=== PATIENT | male | born 1950 | race Caucasian/White ===

== ENCOUNTER 2016-05-10 10:28 | Observation (INO) | payer BC ==
[~2016-05-10] VITALS: Ht 185.4 cm; Wt 119.1 kg
[2016-05-10] MEDS ORDERED: CEFUROXIME250 MG (10:44)
[2016-05-10] MEDS ORDERED: MEDROL DOSE PACK4 MG (10:44)
[2016-05-10] MEDS ORDERED: TAMIFLU75 MG (10:44)
--- NOTE | 2016-05-10 11:01 | NUR ---
RECEIVED PT TO ROOM 2117 AMBULATORY AAOX4 DENIES CHEST PAIN DOES STATE SOME DIZZINESS AND WEAKNESS MILD HEAD ACHE
[2016-05-10 11:43] LABS: BASOPHILS 0.4 % (0.0-2.0); EOSINOPHILS 2.1 % (0-7); HEMATOCRIT 45.9 % (42.0-54.0); HEMOGLOBIN 15.5 g/dL (13.5-17.5); IMMATURE GRANULOCYTES 0.1 % (0-5); LYMPHOCYTES 29.6 % (15-50); MCHC 33.8 g/dL (31.0-37.0); MCV 91.8 fL (80.0-100.0); MEAN PLATELET VOLUME 10.8 fL (7.4-10.4); MONOCYTES 6.6 % (2-11); NEUTROPHILS 61.2 % (40-80); PLATELET COUNT 159 10x3/uL (130-400); RDW 13.9 % (11.5-14.5); WBC 7.1 10x3/uL (4.8-10.8)
[2016-05-10 12:00] LABS: ALBUMIN 3.5 g/dL (3.4-5.0); ALKALINE PHOSPHATASE 76 U/L (46-116); ALT (SGPT) 26 U/L (10-68); BILIRUBIN - TOTAL 0.33 mg/dL (0.2-1.3); CALC OSMOLALITY 288 mosm/kg (275-300); CALCIUM 8.7 mg/dL (8.5-10.1); CARBON DIOXIDE 27.8 mmol/L (21.0-32.0); CHLORIDE - SERUM 109 mmol/L (98-107); CREATININE - SERUM 0.9 mg/dL (0.6-1.3); GLUCOSE 91 mg/dL (74-106); PROTEIN - SERUM 6.4 g/dL (6.4-8.2); SODIUM 143 mmol/L (136-145); UREA NITROGEN 24 mg/dL (7-18); eGFR NON AFRICAN AMERICAN > 90 mL/min (90-120)
[2016-05-10 12:08] LABS: CREATINE KINASE 111 UL (21-232)
[2016-05-10 12:09] LABS: TROPONIN-I < 0.017 ng/mL (0.000-0.060)
[2016-05-10 12:43] VITALS: BP 206/108
[2016-05-10 13:41] VITALS: BP 106/108; Ht 185.4 cm; Wt 119.1 kg
[2016-05-10 16:18] VITALS: BP 187/96
[2016-05-10 19:06] LABS: CREATINE KINASE 99 UL (21-232); TROPONIN-I < 0.017 ng/mL (0.000-0.060)
--- NOTE | 2016-05-10 19:15 | NUR ---
INITIAL ROUNDS MADE. PT SITTING UP IN BED WITH FAMILY IN ROOM, WATCHING TV. DENIES NEEDS OR C/O AT THIS TIME. CALL LIGHT IN REACH. SLEEPER CHAIR BROUGHT FOR . CONT TO MONITOR.
[2016-05-10 20:15] VITALS: BP 137/71
[2016-05-10 22:07] LABS: CKMB 0.8 U/L (0.0-3.6); CREATINE KINASE 91 UL (21-232); TROPONIN-I < 0.017 ng/mL (0.000-0.060)
[2016-05-11 00:34] VITALS: BP 143/80
--- NOTE | 2016-05-11 00:55 | NUR ---
STRINGER MACHINE TENDER AT BEDSIDE FOR VS, NEEDS ADDRESSED. CALL LIGHT IN REACH. WILL CONT TO MONITOR.
[2016-05-11 04:26] VITALS: BP 144/90
[2016-05-11 05:15] LABS: BASOPHILS 0.2 % (0.0-2.0); EOSINOPHILS 2.7 % (0-7); HEMATOCRIT 45.4 % (42.0-54.0); HEMOGLOBIN 15.4 g/dL (13.5-17.5); IMMATURE GRANULOCYTES 0.2 % (0-5); LYMPHOCYTES 30.2 % (15-50); MCH 30.9 pg (26.0-34.0); MCHC 33.9 g/dL (31.0-37.0); MCV 91.2 fL (80.0-100.0); MEAN PLATELET VOLUME 11.2 fL (7.4-10.4); MONOCYTES 7.7 % (2-11); PLATELET COUNT 156 10x3/uL (130-400); RBC 4.98 10x6/uL (4.20-6.10); RDW 13.7 % (11.5-14.5); WBC 6.7 10x3/uL (4.8-10.8)
[2016-05-11 05:29] LABS: CALC OSMOLALITY 280 mosm/kg (275-300); CALCIUM 8.2 mg/dL (8.5-10.1); CARBON DIOXIDE 25.9 mmol/L (21.0-32.0); CHLORIDE - SERUM 107 mmol/L (98-107); CREATININE - SERUM 0.9 mg/dL (0.6-1.3); GLUCOSE 97 mg/dL (74-106); POTASSIUM - SERUM 3.9 mmol/L (3.5-5.1); SODIUM 140 mmol/L (136-145); UREA NITROGEN 19 mg/dL (7-18); eGFR NON AFRICAN AMERICAN > 90 mL/min (90-120)
--- NOTE | 2016-05-11 06:43 | NUR ---
RESTING WELL WITH EYES CLOSED, CONT TO MONITOR.
--- NOTE | 2016-05-11 07:30 | NUR ---
RECEIVED PT IN BED AAOX4 RESP UNLABORED DENIES ANY NEEDS OR DISCOMFORT AT THIS TIME NAD
[2016-05-11 08:33] VITALS: BP 176/97
[2016-05-11] MEDS ORDERED: ZESTORETIC 20/21 TAB PO (12:13)
[2016-05-11 12:26] VITALS: BP 166/88
--- NOTE | 2016-05-11 13:10 | NUR ---
REVIEWED DISCHARGE INSTRUCTIONS PT STATES UNDERSTANDING COPY GIVEN PT DISCHARGED HOME LEFT UNIT AMBULATORY WITH AND STAFF REFUSSED W/C STABLE CONDITION WITH ALL PERSONAL BELONGINGS
--- NOTE | 2016-05-12 10:09 | EC ---
PATIENT:BANDAR MORAN DATE OF SERVICE: 05/10/16 SEX: M MEDICAL RECORD: [id number] DATE OF : 54 LOCATION:D. D.211 AGE OF PATIENT: 65 ADMISSION DATE: 05/10/16 REFERRING PHYSICIAN: INTERPRETING PHYSICIAN: PAO ROTH MD ECHOCARDIOGRAM REPORT ECHO CHARGES 4 ECHO COMPLETE CLINICAL DIAGNOSIS: HTN ECHOCARDIOGRAPHIC MEASUREMENTS (adult normal given) AC root (d.<3.7cm) 3.5 LV Septum d (<1.2 cm> 1.4 Valve Excursion 1.6 LV Septum (systole) 2.2 Left Atria (s.<4.0cm> 5.0 LVPW d(<1.2cm) 1.4 RV (d.<2.3cm) 3.4 LVPW (sytole) 2.3 LV diastole(<5.6CM) 6.4 MV E-F(>70mm/sec) LV systole 3.9 LVOT Diameter 2.2 MV exc.(>10mm) Est.ejection fraction (50-75%) Pericardial Effusion N DOPPLER: LVIT A 44.0 E 59.0 LA RVSP 43.2 LVOT 113 AOP1/2T Asc. Ao 194 RVOT 52.0 RA PA 107 AV Gradient Peak 15.1 AV Mean 6.8 AV Area 2.1 MV Gradient Peak 3.1 MV Mean 0.73 MV Area COMMENTS: Erp Analyst: Stephen RIDEROE Stockfeed Miller:1 Dr. Roth TAPE# PACS DATE OF SERVICE: 05/10/2016 Echocardiogram FINDINGS: 1. Left ventricular chamber size is within normal limits. Left ventricular systolic function is normal. Overall ejection fraction estimated at 55%. 2. Left atrium is enlarged at 5.0 cm. Right atrium and right ventricular chamber sizes are as well mildly dilated. 3. Valvular structures have normal structure and motion. ECHOCARDIOGRAM REPORT [id number] BANDAR MORAN 4. Doppler interrogation reveals [id number] mitral regurgitation, mild tricuspid regurgitation. No other valvular insufficiency or stenosis. Pulmonary systolic pressure is mildly elevated estimated 43 mmHg. 5. No evidence of pericardial effusion or left ventricular thrombus. TRANSINT:[id number] Voice Confirmation ID: [id number] DOCUMENT ID: [id number] PAO ROTH MD at 1009 CC: [id number] DICTATION DATE: 05/11/16 1153 SUSTAINABILITY OFFICER: 05/11/16 2321 DIS IN 05/11/16 [facility] [address] [id number]
--- NOTE | 2016-05-12 10:09 | CN ---
PATIENT NAME:BANDAR MORAN MEDICAL RECORD: [id number] : 54 LOCATION:D. D.2118 ADMIT DATE: 05/10/16 ACCOUNT: [id number] CONSULTING PHYSICIAN: PAO CURRIE MD REFERRING PHYSICIAN: GISELLE HILLS MD DATE OF CONSULTATION: 05/10/2016 Cardiology Consultation ADMITTING DIAGNOSES: 1. Near syncope. 2. Hypertension. 3. Bradycardia. HISTORY OF PRESENT ILLNESS: Mr. Moran has had no chest pain, no chest discomfort. He had an episode of near syncope on . His blood pressure has been running in the 170-200 range since. He had no shortness of breath, minor headache with this. He has been told in the past that he is hypertensive, but has not been placed on any medications. His EKG does show sinus bradycardia in the mid 50s. No ST-T abnormalities. PHYSICAL EXAMINATION: GENERAL APPEARANCE: Well-nourished, well-developed, appears stated age. Level of distress, comfortable. PSYCHIATRIC: Mental status, alert, normal affect. Orientation, oriented to time, place and person. EYES: Lids and conjunctiva, noninjected. No discharge, no pallor. ENT: Lips, teeth, gums, normal dentition. Oropharynx, no cyanosis, no pallor. NECK: Carotid arteries, bilateral normal upstroke, no bruits, no thrills. JUGULAR VEINS: No jugular venous pressure or distention. CERVICAL LYMPH NODES: Nontender, nonenlarged. THYROID: Not enlarged. Nontender. No nodules. LUNGS: Respiratory effort, unlabored. CHEST: Normal curvature. No thoracic deformity. No chest wall tenderness. Percussion, resonant. Auscultation, clear. No wheezes, no rales, no rhonchi. CARDIOVASCULAR: Precordial exam, nondisplaced. No heaves or pericardial thrills. Rate and rhythm, regular. Heart sounds, normal S1, normal S2. No S3, no gallop, no rub. Systolic murmur, not heard. Diastolic murmur, not heard. EXTREMITIES: No cyanosis, no edema. Peripheral pulses, full and equal in all extremities, except as noted. No bruits appreciated. ABDOMEN: Soft, nondistended. Normal aorta. No bruit. Nontender. No masses. Liver, nontender, no hepatomegaly. Spleen, nontender, no splenomegaly. MUSCULOSKELETAL: No joint tenderness. No joint swelling. No erythema. NEUROLOGICAL: Normal gait, normal strength, normal tone. SKIN: Warm and dry. REVIEW OF SYSTEMS: The patient reports easy bruising but reports no swollen glands. The patient reports no fever, no night sweats, no significant weight gain, no significant weight loss. No significant exercise tolerance. The patient reports no dry eyes, no irritation, no vision change. Patient reports no difficulty hearing and no ear pain. Patient reports no frequent nose bleeds or nose and sinus problems. Patient reports on arm pain on exertion. No shortness of breath while lying down. No history of heart murmur. Patient reports no cough, no wheezing or coughing up blood. Patient reports no abdominal pain, no vomiting. Normal appetite. No diarrhea and not vomiting CONSULT REPORT [id number] BANDAR MORAN. No nausea and no constipation. Patient reports no incontinence. No difficulty urinating. No hematuria. No increased frequency. Patient reports no muscle aches. No weakness, no arthralgias, no back pain. No swelling of the extremities. Patient reports no abnormal mole, no jaundice, no rashes. Reports no loss of consciousness. No weakness and no numbness. No seizures, dizziness, or headaches. The patient reports no depression, no sleep disturbance, feeling safe in a relationship and no alcohol abuse. Patient reports on fatigue. Reports no runny nose or sinus pressure. No itching, no hives, and no frequent sneezing. OVERALL IMPRESSION: Hypertension, sinus bradycardia. It does not have anything to do with hypertension, most likely, he does have essential hypertension. It is difficult to say what the episode of near syncope was. It only lasted seconds. We will treat his blood pressure with lisinopril 40 mg every day. Get an echocardiogram today. Further care depends upon the results with the lisinopril and the echocardiogram results. TRANSINT:[id number] Voice Confirmation ID: [id number] DOCUMENT ID: [id number] PAO CURRIE MD at 1009 CC: [id number] DICTATION DATE: 05/10/16 1132 CRM MARKETING ANALYST: 05/10/16 1214 DIS IN 05/11/16 [id number] [place] [address]
== END 2016-05-11 13:10 | disposition home or self-care (01) ==
LOC: D.M2 10:28 → OBSVTIME 10:29 → D.M2 05-11 13:10
PROVIDERS: ADMIT Family Medicine Adult Medicine
DX: R07.9 Chest pain, unspecified (principal); R55 Syncope and collapse; I10 Essential (primary) hypertension; R00.1 Bradycardia, unspecified

== ENCOUNTER 2016-05-30 07:07 | Outpatient (CLI) | payer BC ==
[~2016-05-30] VITALS: Ht 185.4 cm; Wt 111.4 kg
--- NOTE | ~2016-05-30 | HEMODYNAMI ---
PATIENT:BANDAR MORAN MEDICAL RECORD: [id number] : 54 LOCATION:DVIMAL ADMISSION DATE: 05/30/16 Generatedon:05/30/20168:49 Patient name: BANDAR MORAN Patient #: [id number] SSN: DO B: 1950 Date of study: 05/30/2016 Page: Of Hemodynamic Procedure Report Patient Data Patient Demographics Procedure consent was obtained First Name: BANDAR Gender: Male Last Name: LUISA : 1950 Patient #: [id number] Age: 65 year(s) Race: Unknown Additional ID: [id number] Contact details [address]: [address] [place] [address] State: [place] City: [place] Zip code: [address] Past Medical History Allergies: No known allergies Admission Admission Data Admission Date: 05/30/2016 Admission Time: 7:07 Lab Results Lab Result Date: 05/30/2016 Lab Result Time: 0:00 Biochemistry Name Units Result Min Max Creatinine mg/dl 0.9 --(-*--)-- 0.6 1.3 CBC Name Units Result Min Max Hemoglobin g/dl 16.2 --(--*-)-- 13.5 17.5 Procedure Procedure Types Cath Procedure Diagnostic Procedure [facility] w/Coronaries Miscellaneous Procedures Moderate Sedation up to 15 minutes Procedure Description Procedure Date Procedure Date: 05/30/2016 Procedure Start Time: 8:39 Procedure End Time: 8:49 Procedure Staff Name Function Arthur Roth MD Performing Physician Luanne Thomson RT Scrub Refugio Aguayo RN Nurse Lars Burgos RT Monitor Procedure Data Cath Procedure Fluoroscopy Diagnostic fluoroscopy Total fluoroscopy Time: 1.1 time: 1.1 min min Diagnostic fluoroscopy Total fluoroscopy dose: 664 dose: 664 mGy mGy Contrast Material Contrast Material Type Amount (ml) Isovue 300 67 Entry Location Entry Primary Successful Side Size Upsize Upsize Entry Closure Succes sful Closure Location (Fr) 1 (Fr) 2 (Fr) Remarks Device Remarks Femoral Right 5 Fr Exoseal artery Estimated blood loss: 5 ml Diagnostic catheters Device Type Used For End Catheter Placement Cordis 5Fr Pigtail LV Angiography Catheter (MP) Cordis 5Fr JL 4.0 Left Coronary Catheter (MP) Angiography Cordis 5Fr 3DRC Catheter Right Coronary (MP) Angiography Procedure Complications No complications Procedure Medications Medication Administration Route Dosage Oxygen NC 2 l/min Lidocaine 2% added to field 20 Heparin Flush Bag added to field 2 bags (1000units/500ml NS) 0.9% NaCl I.V. 100 ml/hr Versed I.V. 1 mg Fentanyl I.V. 50 mcg Versed I.V. 1 mg Fentanyl I.V. 50 mcg Versed I.V. 1 mg Fentanyl I.V. 50 mcg Versed I.V. 1 mg Fentanyl I.V. 50 mcg Hemodynamics Rest HGB: 16.2 (g/dl) Heart Rate: 52 (bpm) Snapshots Pre Cath Intra NCS Post Cath Vital Signs Time Heart Resp SPO2 etCO2 [id number] NIBP (mmHg) Rhythm Pain Sedation Rate (ipm) (%) (mmHg) (mmHg) Status Level (bpm) 8:17:09 56 17 100 0 0 139/111(117) NSR 0 (11) 10(A) , No pain 8:21:24 57 18 100 0 0 156/92(135) NSR 0 (11) 10(A) , No pain 8:25:46 57 15 100 0 0 149/89(120) NSR 0 (11) 10(A) , No pain 8:30:48 59 16 97 0 0 131/77(91) NSR 0 (11) 10(A) , No pain 8:35:02 54 16 95 0 0 121/82(95) NSR 0 (11) 10(A) , No pain 8:39:12 50 17 96 0 0 122/86(99) NSR 0 (11) 9(A) , No pain 8:43:27 51 17 95 0 0 132/67(104) NSR 0 (11) 9(A) , No pain 8:47:45 54 17 95 0 0 123/69(101) NSR 0 (11) 10(A) , No pain Medications Time Medication Route Dose Verified Delivered Reason Notes Effec tiveness by by 8:24:49 Oxygen NC 2 Arthur Huff used for l/min Gonzalez Aguayo RN procedure 8:24:56 Lidocaine 2% added 20ml Arthur Arthur for local to vial Gonzalez Roth MD anesthetic field 8:25:02 Heparin Flush added 2 Arthur Arthur used for Bag to bags Gonzalez Roth MD procedure (1000units/500ml field NS) 8:25:12 0.9% NaCl I.V. 100 Arthur Buffie Per ml/hr Gonzalez Aguayo RN physician 8:37:56 Versed I.V. 1 mg Arthur Buffie for Gonzalez Aguayo RN sedation 8:38:02 Fentanyl I.V. 50 Arthur Buffie for mcg Gonzalez Aguayo RN sedation 8:40:19 Versed I.V. 1 mg Arthur Buffie for Gonzalez Aguayo RN sedation 8:40:22 Fentanyl I.V. 50 Arthur Buffie for mcg Gonzalez Aguayo RN sedation 8:42:35 Versed I.V. 1 mg Arthur Buffie for Gonzalez Aguayo RN sedation 8:42:39 Fentanyl I.V. 50 Arthur Buffie for mcg Gonzalez Aguayo RN sedation 8:45:45 Versed I.V. 1 mg Arthur Buffie for Gonzalez Aguayo RN sedation 8:46:11 Fentanyl I.V. 50 Arthur Buffie for mcg Gonzalez Aguayo RN sedation Procedure Log Time Note 8:08:29 Diagnostic Cath Status : Elective 8:09:10 Luanne Counts RT(R) sent for patient. Start room use. 8:09:11 Time tracking: Regular hours 8:09:15 Plan of Care:Hemodynamics will remain stable., Cardiac rhythm will remain stable., Comfort level will be maintained., Respiratory function will remain adequate., Patient/ family verbilizes understanding of procedure., Procedure tolerated without complication., Recovers from procedure without complications.. 8:15:43 Patient received from Pre/Post Procedure Room to CCL 1 Alert and oriented. Tansferred to table in Supine position. 8:15:45 Correct patient and procedure confirmed by team. 8:15:46 Warm blankets applied, and angelica hugger turned on for patient comfort. 8:15:47 ECG and BP/O2 sat monitors applied to patient. 8:15:49 Signed procedure consent form obtained from patient. 8:15:50 Full Disclosure recording started 8:15:51 Vital chart was started 8:20:25 Baseline sample Acquired. 8:20:31 Rhythm: sinus bradycardia 8:20:44 H&P Date Dictated: 05/10/2016 Within 30 days and on chart., H&P Addendum completed by physician on day of procedure. (MUST COMPLETE FOR ALL OUTPATIENTS). 8:20:45 Pre-procedure instructions explained to patient. 8:20:45 Pre-op teaching completed and patient verbalized understanding. 8:20:47 Family in waiting room. 8:20:48 Patient NPO since Midnight. 8:20:55 Patient allergic to No known allergies 8:20:59 Is the patient allergic to Iodine/contrast media? No. 8:21:04 Is patient on blood thinner?Yes 8:21:06 ACC The patient was administered the following blood thiners within the last 24 hours: ACCPlavix 8:21:08 Patient diabetic? No. 8:23:26 Previous problem with sedation/anesthesia? No ? 8:23:27 Snore? Yes 8:23:28 Sleep apnea? Yes 8:23:29 Deviated septum? No 8:23:30 Opens mouth fully? Yes 8:23:31 Sticks out tongue? Yes 8:23:32 Airway obstruction? No ? 8:23:34 Dentures? No ? 8:23:37 Pre procedure: right dorsailis pedis pulse 2+ Normal; easily identifiable; not easily obliterated 8:23:44 Modified Robert's test Ulnar > 7 seconds. 8:23:47 Patient pain scale 0/10 ?. 8:23:51 IV patent on arrival in left hand with 0.9% NaCl at KVO. 8:24:43 Lab Result : Creatinine 0.9 mg/dl 8:24:44 Lab Result : Hemoglobin 16.2 g/dl 8:24:49 Oxygen 2 l/min NC was administered by Refugio Aguayo RN; used for procedure; 8:24:49 Lab results completed and on chart. 8:24:55 Right groin area was prepped with chlora-prep and draped in sterile fashion 8:24:56 Lidocaine 2% 20ml vial added to field was administered by Arthur Roth MD; for local anesthetic; 8:24:56 Alarms reviewed by R. N. 8:24:56 Sharps counted by scrub and verified by R.N. 8:25:01 Use device set Femoral Dx 8:25:02 Heparin Flush Bag (1000units/500ml NS) 2 bags added to field was administered by Arthur Roth MD; used for procedure; 8:25:02 Acist Syringe opened to sterile field. 8:25:02 Bag Decanter opened to sterile field. 8:25:03 Medline Cath Pack opened to sterile field. 8:25:03 Terumo 5Fr Tolstoy Sheath opened to sterile field. 8:25:04 St Devon 260cm J .035 wire opened to sterile field. 8:25:05 Acist Hand Control opened to sterile field. 8:25:06 Acist Manifold opened to sterile field. 8:25:07 Diagnostic Infinity 5Fr Multipack catheter opened to sterile field. 8:25:07 Tegaderm 4 x 4 opened to sterile field. 8:25:12 0.9% NaCl 100 ml/hr I.V. was administered by Refugio Aguayo RN; Per physician; 8:27:20 Physician paged 8:31:56 Zero performed for pressure channel P1 8:37:24 Final Timeout: patient, procedure, and site verified with staff and physician. All members of the team are in agreement. 8:37:26 Right groin site verified by team. 8:37:29 Physical assessment completed. ASA score P 2 - A patient with mild systemic disease as per Arthur Roth MD. 8:37:33 Sedation plan: IV Moderate Sedation Versed, Fentanyl 8:37:56 Versed 1 mg I.V. was administered by Refugio Aguayo RN; for sedation; 8:38:02 Fentanyl 50 mcg I.V. was administered by Refugio Aguayo RN; for sedation; 8:39:46 Procedure started. 8:39:52 Local anesthetic to right femoral artery with Lidocaine 2% by Arthur Roth MD.INITIAL ACCESS ONLY 8:40:17 A 5 Fr sheath was inserted into the Right Femoral artery 8:40:19 Versed 1 mg I.V. was administered by Refugio Aguayo RN; for sedation; 8:40:22 Fentanyl 50 mcg I.V. was administered by Refugio Aguayo RN; for sedation; 8:40:47 A Cordis 5Fr Pigtail Catheter (MP) was advanced over the wire and used for LV Angiography. 8:40:51 LV gram done using STEWART 8:41:03 Injector settings: Ml/sec: 10, Volume: 20, 8:41:59 EF : 60 % 8:42:03 Catheter removed. 8:42:20 A Cordis 5Fr JL 4.0 Catheter (MP) was advanced over the wire and used for Left Coronary Angiography. 8:42:35 Versed 1 mg I.V. was administered by Refugio Aguayo RN; for sedation; 8:42:39 Fentanyl 50 mcg I.V. was administered by Refugio Aguayo RN; for sedation; 8:43:26 Catheter removed. 8:43:32 A Cordis 5Fr 3DRC Catheter (MP) was advanced over the wire and used for Right Coronary Angiography. 8:44:31 Catheter removed. 8:44:37 Cordis 5Fr Exoseal opened to sterile field. 8:44:55 Sheath removed intact; hemostasis achieved with Exoseal to the Right Femoral artery. 8:44:57 Procedure ended.(Physican Out) 8:45:08 Fluoroscopy time 01.10 minutes. 8:45:12 Fluoroscopy dose: 664 mGy 8:45:12 Flurop Dose total: 664 8:45:16 Contrast amount:Isovue 300 67ml. 8:45:42 Sharps counted by scrub and verified by R.N. 8:45:44 Insertion/operative site no bleeding no hematoma. 8:45:45 Versed 1 mg I.V. was administered by Refugio Aguayo RN; for sedation; 8:45:48 Post-op/insertion site Right Femoral artery dressed using a 4 x 4 and Tegaderm. 8:45:52 Post right femoral artery:stable, clean and dry 8:45:54 Post Procedure Pulses reassessed and unchanged 8:45:56 Post-procedure physical assessment completed. ASA score P 2 - A patient with mild systemic disease as per Arthur Roth MD. 8:46:06 Post procedure rhythm: unchanged. 8:46:11 Fentanyl 50 mcg I.V. was administered by Refugio Aguayo RN; for sedation; 8:46:11 Estimated blood loss: 5 ml 8:46:13 Post procedure instruction explained to patient.Patient verbalizes understanding. 8:46:13 Patient needs reinforcement of post procedure teaching. 8:46:26 Procedure type changed to Cath procedure, Diagnostic procedure, LHC, LHC w/Coronaries, Miscellaneous Procedures, Moderate Sedation up to 15 minutes 8:46:32 Procedure Complication : No complications 8:46:35 See physician's report for complete and final results. 8:46:50 Procedure and supply charges have been captured, reviewed, submitted and are correct. 8:48:52 Vital chart was stopped 8:48:54 Report given to Pre/Post Procedure Room. 8:48:59 Patient transfered to Pre/Post Procedure Room with Stretcher. 8:49:09 Procedure ended. 8:49:09 Full Disclosure recording stopped 8:49:14 End room use (Document Last) Device Usage Item Name Manufacture Quantity Catalog Hospital Part Current Minimal Lo t# / Number Charge Number Stock Stock Serial# Code Acist Acist 1 92363 762825 264353 100192 20 Syringe [employer] Inc Bag Microtek 1 2002S 420781 13442 782218 5 Decanter [employer] Inc. Medline Cardinal 1 [id number] 104823 43983 949600 5 Cath Pack Health Terumo 5Fr Terumo 1 [id number] 182152 109162 578045 [address] St Devon 1 [id number] 912111 838845 567715 30 260cm J .035 wire Acist Hand Acist 1 04739 623353 891738 506266 5 Control Medical Systems Inc Acist Acist 1 82604 552116 801241 182181 5 Manifold Medical Systems Inc Diagnostic Cardinal 1 [id number] 414160 30967 107017 30 Infinity Health 5Fr Multipack catheter Tegaderm 4 3M 1 1626W 108523 487707 557786 5 x 4 Cordis 5Fr Cardinal 1 [id number] 5 Pigtail Health Catheter (MP) Cordis 5Fr Cardinal 1 184819 5 JL 4.0 Health Catheter (MP) Cordis 5Fr Cardinal 1 693913 5 3DRC Health Catheter (MP) Cordis 5Fr Cardinal 1 EX500 188660 910403 922645 10 [email or web address] Signature Audit Riva Stage Time Signature Unsigned Intra-Procedure 05/30/2016 Luanne 8:49:27 AM Counts RT(R) Signatures Monitor : Lars Burgos RT Signature : Date : Time : [id number] [place] [address]
[~2016-05-30 07:07] MED LIST: CEFUROXIME250 MG; MEDROL DOSE PACK4 MG; TAMIFLU75 MG; ZESTORETIC 20/21 TAB PO
[2016-05-30] MEDS ORDERED: NORVASC5 MG PO (07:26)
[2016-05-30] MEDS ORDERED: PLAVIX75 MG PO (07:27)
[2016-05-30 07:30] VITALS: BP 139/87; Ht 185.4 cm; Wt 111.4 kg
[2016-05-30 07:39] LABS: BASOPHILS 0.2 % (0.0-2.0); EOSINOPHILS 1.5 % (0-7); HEMATOCRIT 46.7 % (42.0-54.0); HEMOGLOBIN 16.2 g/dL (13.5-17.5); IMMATURE GRANULOCYTES 0.2 % (0-5); LYMPHOCYTES 25.7 % (15-50); MCH 31.4 pg (26.0-34.0); MCHC 34.7 g/dL (31.0-37.0); MCV 90.5 fL (80.0-100.0); MEAN PLATELET VOLUME 10.7 fL (7.4-10.4); MONOCYTES 7.1 % (2-11); NEUTROPHILS 65.3 % (40-80); PLATELET COUNT 175 10x3/uL (130-400); RBC 5.16 10x6/uL (4.20-6.10); RDW 13.1 % (11.5-14.5); WBC 6.1 10x3/uL (4.8-10.8)
[2016-05-30 07:52] LABS: CALC OSMOLALITY 283 mosm/kg (275-300); CARBON DIOXIDE 27.1 mmol/L (21.0-32.0); CHLORIDE - SERUM 106 mmol/L (98-107); CREATININE - SERUM 0.9 mg/dL (0.6-1.3); GLUCOSE 108 mg/dL (74-106); POTASSIUM - SERUM 4.4 mmol/L (3.5-5.1); SODIUM 140 mmol/L (136-145); UREA NITROGEN 24 mg/dL (7-18); eGFR NON AFRICAN AMERICAN > 90 mL/min (90-120)
--- NOTE | 2016-05-30 09:15 | NUR ---
IN BED SLEEPING. 2L NC, NO RESP DISTRESS NOTED. VSS. NO C/O CHEST PAIN OR NAUSEA. RIGHT GROIN CDI, NO BLEEDING OR HEMATOMA NOTED. INSTRUCTED PT TO KEEP HEAD FLAT ON PILLOW AND RIGHT LEG STRAIGHT.
--- NOTE | 2016-05-30 09:45 | NUR ---
RESTING QUIETLY. VSS. 2L NC, NO RESP DISTRESS. NO C/O CHEST PAIN. RIGHT GROIN CDI, NO BLEEDING OR HEMATOMA NOTED. AT BEDSIDE, CALL LIGHT WITHIN REACH.
--- NOTE | 2016-05-30 10:00 | NUR ---
SANDWICH TRAY GIVEN. NO C/O NAUSEA OR CHEST PAIN. RIGHT GROIN CDI, NO BLEEDING OR HEMATOMA NOTED. WILL CONTINUE TO MONITOR.
--- NOTE | 2016-05-30 10:35 | NUR ---
HOB ELEVATED 30 DEGREES. NO BLEEDING OR HEMATOMA NOTED TO RIGHT GROIN.
--- NOTE | 2016-05-30 10:46 | NUR ---
LEFT WRIST PIV D/C'D WITH CATHETER INTACT, BAND AID TO SITE. UP TO BEDSIDE TO GET DRESSED.
--- NOTE | 2016-05-30 10:50 | NUR ---
UP TO RESTROOM TO VOID.
--- NOTE | 2016-05-30 10:55 | NUR ---
DISCHARGE INSTRUCTIONS GIVEN, PT AND VERBALIZED UNDERSTANDING.
--- NOTE | 2016-05-30 11:00 | NUR ---
TAKEN OUT VIA WHEELCHAIR BY CATH WINDOWS SECURITY ANALYST. LEFT FACILITY WITH FAMILY MEMBER AND ALL PERSONAL BELONGINGS.
--- NOTE | 2016-06-13 10:19 | OP ---
PATIENT NAME: BANDAR MORAN MEDICAL RECORD: [id number] :54 LOCATION:D.CAT ADMISSION DATE: SURGEON: PAO CURRIE MD DATE OF OPERATION: 05/30/2016 PROCEDURES: 1. Left heart catheterization. 2. Selective coronary angiography. 3. Left ventriculogram. INDICATION: Angina and coronary artery disease. PROCEDURE: After informed consent was obtained and after detailed explanation of risks, benefits as well as alternative therapies, the patient elected to proceed with angiogram and heart catheterization. The right femoral area is prepped and draped in normal sterile fashion. The right femoral artery was cannulated via modified Seldinger technique with placement of 5-Tamazight sheath. All catheters exchanged through this sheath. FINDINGS: Left ventriculogram was performed in the standard 30-degree STEWART view reveals good cardiac wall motion throughout all segments. Overall ejection fraction estimated at 60%. SELECTIVE CORONARY ANGIOGRAPHY: Left main, left anterior descending, left circumflex, right coronary artery are all with only mild irregularities, no flow-limiting stenosis. No stenosis greater than 20%. OVERALL IMPRESSION: Minimal coronary artery disease is present. No flow-limiting stenosis, normal ejection fraction. Symptomatology is noncardiac in etiology. TRANSINT:[id number] Voice Confirmation ID: [id number] DOCUMENT ID: [id number] PAO CURRIE MD at 1019 CC: [id number] DICTATION DATE: 05/30/16 0847 WET END TESTER: 05/30/16 1151 DEP CLI 05/30/16 [id number] [id number]
== END 2016-05-30 11:00 | disposition home or self-care (01) ==
LOC: D.CATH 07:07
PROVIDERS: Internal Medicine Interventional Cardiology
DX: R07.89 Other chest pain (principal)